=== PATIENT | female | born 1975 | race Caucasian/White ===

== ENCOUNTER 2022-02-05 05:20 | Inpatient (IN) | payer MEDICAID ==
[~2022-02-05] VITALS: Ht 162.6 cm; Wt 76.7 kg
[2022-02-05] MEDS ORDERED: PREN-543 PO (05:51)
[2022-02-05] MEDS ORDERED: CITRIC ACID/SODIUM CITRATE 30 ML UDC PO SCH (05:55)
[2022-02-05 06:12] LABS: BASOPHILS # (AUTO) 0.1 K/uL (0.00-0.22); BASOPHILS % (AUTO) 1.6 % (0.0-2.0); EOSINOPHILS # (AUTO) 0.1 K/uL (0-0.4); EOSINOPHILS % (AUTO) 1.6 % (0.0-4.0); HEMATOCRIT 36.3 % (36-48); HEMOGLOBIN 12.5 g/dL (12.0-16.0); LYMPHOCYTES # (AUTO) 2.7 K/uL (2.5-16.5); LYMPHOCYTES % (AUTO) 28.5 % (20.5-51.1); MEAN CORPUSCULAR HEMOGLOBIN 31 pg (27-31); MEAN CORPUSCULAR HGB CONC 34 g/dL (33-37); MEAN CORPUSCULAR VOLUME 90.3 fL (80-94); MONOCYTES # (AUTO) 0.7 K/uL (0.8-1.0); MONOCYTES % (AUTO) 7.9 % (1.7-9.3); NEUTROPHILS # (AUTO) 5.7 K/uL (1.8-7.7); NEUTROPHILS % (AUTO) 60.4 % (42.2-75.2); PLATELET COUNT (AUTO) 207 K/uL (140-450); RED BLOOD CELL COUNT(AUTO) 4.02 MIL/uL (4.20-5.40); RED CELL DISTRIBUTION WIDTH 15.2 % (11.6-13.7); WHITE BLOOD COUNT (AUTO) 9.4 K/uL (4.8-10.8)
[2022-02-05 06:30] LABS: PROTHROMBIN TIME 8.7 secs (10.8-13.4)
[2022-02-05] MEDS: LACTATED RINGERS 1,000 ML IV SCH ×2 (06:48→10:09)
[2022-02-05 06:49] LABS: APPEARANCE,URINE CLEAR (CLEAR); BILIRUBIN,URINE NEGATIVE (NEGATIVE); BLOOD, URINE NEGATIVE (NEGATIVE); COLOR,URINE YELLOW (YELLOW); LEUKOCYTE ESTERASE ,URINE NEGATIVE (NEGATIVE); NITRITE, URINE NEGATIVE (NEGATIVE); UGLUCOSE NEGATIVE (NEGATIVE)
[2022-02-05 06:56] VITALS: BP 123/80
[2022-02-05 06:59] LABS: ALBUMIN 2.5 g/dL (3.4-5.0); ANION GAP 14.6 (8-16); CARBON DIOXIDE 21.3 mmol/L (21-32); CREATININE 0.7 mg/dL (0.6-1.3); POTASSIUM 3.9 mmol/L (3.5-5.1); TOTAL BILIRUBIN 0.2 mg/dL (0.0-1.0)
--- NOTE | 2022-02-05 10:12 | NUR ---
PATIENT HAS BEEN SCREENED AND CATEGORIZED LOW NUTRITION RISK. PATIENT WILL BE SEEN WITHIN 7 DAYS OF ADMISSION. 02/12/22 REVIEWED BY LAUREL CHAVES [address]
[2022-02-05] MEDS ORDERED: ceFAZolin 2,000 MG VIAL ONE (10:13)
[2022-02-05] MEDS ORDERED: MORPHINE PRES FREE 10 MG/10 ML AMP IV ONE (10:47)
[2022-02-05] MEDS ORDERED: MIDAZOLAM 2 MG/2 ML VIAL ONE (10:47)
[2022-02-05] MEDS ORDERED: IBUPROFEN 800 MG TAB PO PRN (11:15)
[2022-02-05] MEDS ORDERED: METHYLERGONOVINE 0.2 MG/ML AMP IM PRN (11:15)
[2022-02-05] MEDS ORDERED: TEMAZEPAM 15 MG CAP PO PRN (11:15)
[2022-02-05] MEDS ORDERED: KETOROLAC 30 MG/ML VIAL IVP PRN (11:15)
[2022-02-05] MEDS ORDERED: MEASLES, MUMPS, AND RUBELLA 1 VIAL SQVAC PRN (11:15)
[2022-02-05] MEDS ORDERED: ONDANSETRON 4 MG/2 ML VIAL IVP PRN ×2 (11:30)
[2022-02-05] MEDS ORDERED: diphenhydrAMINE 50 MG/ML VIAL IVP PRN ×2 (11:30)
[2022-02-05] MEDS ORDERED: HYDROmorphone 1 MG/ML AMP IVP PRN (11:30)
[2022-02-05] MEDS ORDERED: MEPERIDINE 25 MG/ML SYR IVP PRN (11:30)
[2022-02-05] MEDS ORDERED: NALOXONE 0.4 MG/ML VIAL IVP PRN ×3 (11:30)
[2022-02-05] MEDS ORDERED: NALBUPHINE 10 MG/ML AMP IVP PRN (11:30)
[2022-02-05] MEDS ORDERED: OXYTOCIN 10 UNITS/ML VIAL ONE (11:54)
[2022-02-05] MEDS: OXYTOCIN 20 UNITS in LACTATED RINGERS 1,000 ML IV SCH ×3 (12:13→19:32)
[2022-02-05] MEDS: KETOROLAC 30 MG/ML VIAL IM/IVP SCH (17:06)
[2022-02-05] MEDS ORDERED: OXYTOCIN 20 UNITS/LR PREMIX 1,000 ML IV ONE (19:26)
[2022-02-05] MEDS: DOCUSATE SOD/SENNA 50/8.6 MG 1 TAB PO SCH (21:00)
[2022-02-06] MEDS: KETOROLAC 30 MG/ML VIAL IM/IVP SCH (00:14)
[2022-02-06] MEDS ORDERED: OXYTOCIN 20 UNITS/LR PREMIX 1,000 ML IV ONE (02:41)
[2022-02-06] MEDS: OXYTOCIN 20 UNITS in LACTATED RINGERS 1,000 ML IV SCH (03:35)
[2022-02-06] MEDS ORDERED: TEMAZEPAM 15 MG CAP PO PRN (05:00)
[2022-02-06] MEDS ORDERED: oxyCODONE/APAP 5/325 MG 1 TAB TAB PO PRN (05:00)
[2022-02-06] MEDS ORDERED: KETOROLAC 30 MG/ML VIAL IM/IVP SCH ×3 (05:45→06:00)
[2022-02-06 05:52] LABS: BASOPHILS % (AUTO) 0.4 % (0.0-2.0); EOSINOPHILS # (AUTO) 0.1 K/uL (0-0.4); EOSINOPHILS % (AUTO) 1.1 % (0.0-4.0); HEMOGLOBIN 10.3 g/dL (12.0-16.0); LYMPHOCYTES # (AUTO) 1.5 K/uL (2.5-16.5); LYMPHOCYTES % (AUTO) 15.4 % (20.5-51.1); MEAN CORPUSCULAR HEMOGLOBIN 31 pg (27-31); MEAN CORPUSCULAR HGB CONC 34 g/dL (33-37); MONOCYTES # (AUTO) 0.8 K/uL (0.8-1.0); MONOCYTES % (AUTO) 8.6 % (1.7-9.3); NEUTROPHILS % (AUTO) 74.5 % (42.2-75.2); PLATELET COUNT (AUTO) 162 K/uL (140-450); RED BLOOD CELL COUNT(AUTO) 3.29 MIL/uL (4.20-5.40); RED CELL DISTRIBUTION WIDTH 14.9 % (11.6-13.7); WHITE BLOOD COUNT (AUTO) 9.4 K/uL (4.8-10.8)
[2022-02-06] MEDS: SIMETHICONE 80 MG TAB.CHEW PO PRN ×2 (09:13→13:12)
[2022-02-06] MEDS: oxyCODONE/APAP 5/325 MG 1 TAB TAB PO PRN ×2 (16:46→20:55)
[2022-02-06] MEDS: DOCUSATE SOD/SENNA 50/8.6 MG 1 TAB PO SCH (20:57)
[2022-02-07] MEDS: oxyCODONE/APAP 5/325 MG 1 TAB TAB PO PRN ×4 (01:26→17:30)
[2022-02-07] MEDS ORDERED: CAMERA MC ONE ×2 (05:29→19:23)
[2022-02-07] MEDS ORDERED: bisacodyL 10 MG SUPP RC SCH (18:45)
[2022-02-07] MEDS ORDERED: bisacodyL 10 MG SUPP RC ONE (18:49)
[2022-02-07] MEDS: DOCUSATE SOD/SENNA 50/8.6 MG 1 TAB PO SCH (20:44)
== END 2022-02-08 08:50 | disposition home or self-care (01) | DRG 539 ==
LOC: MLD 05:20 → OBSVTOIN 05:57 → MFCC 11:54
PROVIDERS: ADMIT Obstetrics & Gynecology; ATTEND Obstetrics & Gynecology
PROC: 0UB70ZZ Excision of Bilateral Fallopian Tubes, Open Approach (ICD-10-PCS; 2022-02-05)
PROC: 10D00Z1 Extraction of Products of Conception, Low, Open Approach (ICD-10-PCS; principal; 2022-02-05 11:00)
DX: O82 Encounter for cesarean delivery without indication (principal); R71.0 Precipitous drop in hematocrit; Z20.822 Contact with and (suspected) exposure to COVID-19; Z3A.39 39 weeks gestation of pregnancy; Z37.0 Single live birth; Z30.2 Encounter for sterilization
CPT/HCPCS: 36415; 80053; 81003; 85025; 85610; 85730; 86592; 86886; 86900; 86901; 90715; J1200; J1885; J2250; J2270; J2590; J7120

== ENCOUNTER 2023-04-04 02:19 | Emergency (ER) | payer MEDICAID ==
[~2023-04-04] VITALS: Ht 162.6 cm; Wt 77.1 kg
[~2023-04-04 02:19] MED LIST: PREN-543 PO
[2023-04-04 02:30] VITALS: BP 108/60; PULSE 105; RESP 17; TEMP 98; O2SAT 99
[2023-04-04] MEDS ORDERED: ONDANSETRON 4 MG ODT PO ONE (02:45)
[2023-04-04] MEDS ORDERED: MORPHINE SULFATE 4 MG/ML SYR IVP ONE (02:50)
[2023-04-04] MEDS ORDERED: ONDANSETRON 4 MG/2 ML VIAL IVP ONE (02:50)
[2023-04-04] MEDS ORDERED: NACL 0.9% 1,000 ML IV ONE (02:50)
[2023-04-04 02:59] LABS: APPEARANCE,URINE CLEAR (CLEAR); BILIRUBIN,URINE NEGATIVE (NEGATIVE); BLOOD, URINE NEGATIVE (NEGATIVE); COLOR,URINE YELLOW (YELLOW); LEUKOCYTE ESTERASE ,URINE NEGATIVE (NEGATIVE); NITRITE, URINE NEGATIVE (NEGATIVE); PH,URINE 8.5 (5.0-9.0); PROTEIN,URINE 1+ (NEGATIVE); UGLUCOSE NEGATIVE (NEGATIVE); UROBILINOGEN,URINE 0.2 EU/dL (0.2 - 1)
[2023-04-04 03:09] LABS: BACTERIA,URINE 2+ /HPF (None Seen); MUCUS,URINE 2+ /LPF (None Seen); RBC,URINE 0-5 /HPF (0-5); SQUAMOUS EPITHELIAL CELL,UR 20-50 /LPF (0-3 (FEW)); TRICHOMONAS,URINE None Seen /HPF (None Seen); WBC,URINE 0-5 /HPF (0-5); YEAST,URINE None Seen /HPF (None Seen)
[2023-04-04] MEDS ORDERED: ONDA-188 SL ×2 (03:53→04:18)
[2023-04-04] MEDS ORDERED: CIPR500T4 PO ×2 (03:53→04:18)
[2023-04-04 04:24] VITALS: BP 108/60; PULSE 105; RESP 17; TEMP 98; O2SAT 99
== END 2023-04-04 04:24 | disposition home or self-care (01) ==
LOC: MED 02:19
DX: N39.0 Urinary tract infection, site not specified (principal); A08.4 Viral intestinal infection, unspecified; Z79.899 Other long term (current) drug therapy; Z79.2 Long term (current) use of antibiotics
CPT/HCPCS: 81001; 87086; 96361; 96374; 96375; 99284; J2270; J2405; J7030; Q0162